=== PATIENT | female | born 2005 | race Caucasian/White ===

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

== ENCOUNTER 2023-11-11 18:45 | Emergency (ER) | payer OTHER ==
[2023-11-11 19:12] VITALS: BP 115/72; PULSE 82; RESP 20; TEMP 98.7; BMI 21.7
[2023-11-11] MEDS: IBUPROFEN 400 MG TABLET (FP) PO ONE (20:41)
[2023-11-11] MEDS ORDERED: IBUPROFEN 400 MG TABLET (FP) PO ONE (20:42)
== END 2023-11-11 23:39 | disposition home or self-care (01) ==
LOC: JERFT 18:45 → JER 18:45 → JERFT 23:39
DX: S90.111A Contusion of right great toe without damage to nail, initial encounter (principal); M79.674 Pain in right toe(s); W22.8XXA Striking against or struck by other objects, initial encounter
CPT/HCPCS: 73630-TC-RT-FY; 99283-25